=== PATIENT | female | born 1955 | race Caucasian/White ===

== ENCOUNTER 2021-07-08 09:31 | Emergency (ER) | payer MEDICARE, SELFPAY ==
--- NOTE | ~2021-07-08 | XR_ITS ---
EXAMINATION: XR chest 1V portable DATE: 07/08/2021 10:56 INDICATION: Fatigue. Weakness. Shortness of breath. TECHNIQUE: A single frontal view of the chest was obtained on 2 radiographs. COMPARISON: None. FINDINGS: The chest demonstrates clear lungs without pneumonia, pleural effusion, or pneumothorax. Th e heart size is normal. There is a prominent right paracardial fat pad. IMPRESSION: 1. No acute cardiopulmonary disease. Reviewed, dictated and finalized at location A. [employer]
[2021-07-08 09:35] VITALS: BP 149/91; PULSE 73; RESP 18; TEMP 36.9; O2SAT 98
--- NOTE | 2021-07-08 11:57 | ED.GENADULT ---
HPI - General Adult General Chief complaint: Weakness Stated complaint: sob Time Seen by Provider: 07/08/21 10:04 Source: patient Mode of arrival: ambulatory Limitations: no limitations History of Present Illness HPI narrative: Patient is 65-year-old female with chief complaint of fatigue, body aches over the past 24 hours. Patient reports that she has felt very fatigued and had increased sleeping. Patient denies chest pain, wheezing or shortness of breath. Patient reports that she did level a swing going to the bathroom yesterday she felt short of breath. But that resolved and she has not had any shortness of breath since that time. Patient states that she felt more like it was taking a lot of her energy more so than actual shortness of breath. She denies fever, nausea, vomiting, diarrhea, abdominal pain, urinary symptoms. She states she has had her covid vaccination and booster as well as her flu shot. She states she does not have any chronic health issues. Related Data Allergies Allergy/AdvReac Type Severity Reaction Status Date / Time Penicillins Allergy Mild Other Verified 10/08/17 16:52 Review of Systems Review of Systems: CONSTITUTIONAL: Reports fatigue and body aches denies fever, chills, or sweats. EYES: Denies visual changes, redness, or discharge. ENT: Denies rhinorrhea, congestion, sore throat, or otalgia. CARDIOVASCULAR: Denies chest pain, palpitations, or edema. RESPIRATORY: Denies cough or dyspnea. GASTROINTESTINAL: Denies abdominal pain, nausea, vomiting, or diarrhea. GENITOURINARY: Denies dysuria or hematuria. SKIN: Denies rash or itching. MUSCULOSKELETAL: Denies back pain, joint pain, or myalgia. NEUROLOGIC: Denies headache, numbness, dizziness, or weakness. PSYCHIATRIC: Denies anxiety or depression. Exam Narrative: GENERAL: Well-appearing, well-nourished, and in no acute distress. HEAD: Normocephalic, atraumatic. EYES: PERRLA and EOMI. ENT: Nares clear, no rhinorrhea or epistaxis. Mucous membranes moist. Bilateral TMs pearly rowe nonbulging NECK: Supple. ROM intact CHEST: Clear to auscultation. No respiratory distress. No wheezes rales or rhonchi HEART: Regular rate and rhythm. No murmur heard. Normal peripheral pulses. ABDOMEN: Soft, nontender, nondistended. SKIN: Warm, dry, no rash. NEURO: No focal deficits. Alert and oriented x3. PSYCH: Normal mood and affect. Course Vital Signs Vital signs: Vital Signs Temperature 98.5 F 07/08/21 09:35 Pulse Rate 73 07/08/21 09:35 Respiratory Rate 18 07/08/21 09:35 Blood Pressure 149/91 H 07/08/21 09:35 Pulse Oximetry 98 07/08/21 09:35 Temperature 98.5 F 07/08/21 09:35 Pulse Rate 73 07/08/21 09:35 Respiratory Rate 18 07/08/21 09:35 Blood Pressure 149/91 H 07/08/21 09:35 Pulse Oximetry 98 07/08/21 09:35 Medical Decision Making MDM Narrative Medical decision making narrative: Patient not hypoxic. Patient vital signs are stable. Patient states x-ray is negative for signs of pneumonia. Patient's influenza test is negative. Patient has been tested for Covid and the results will take 24 to 72 hours to result. Patient has been instructed on discharge plan, to return to emergency department if she has any worsening or emergent symptoms including but not limited to shortness of breath, chest pain, hypoxia. Differential Diagnosis Differential Diagnosis: Covid, influenza, pneumonia, viral syndrome, UTI, [place] Vital Signs Vital Signs: Vital Signs Temperature 98.5 F 07/08/21 09:35 Pulse Rate 73 07/08/21 09:35 Respiratory Rate 18 07/08/21 09:35 Blood Pressure 149/91 H 07/08/21 09:35 Pulse Oximetry 98 07/08/21 09:35 Temperature 98.5 F 07/08/21 09:35 Pulse Rate 73 07/08/21 09:35 Respiratory Rate 18 07/08/21 09:35 Blood Pressure 149/91 H 07/08/21 09:35 Pulse Oximetry 98 07/08/21 09:35 Lab Data Labs: Lab Results 07/08/21 Range/Units 11:22 SARS-CoV-2 RNA (RT-PCR) Pending Influ
[2021-07-08 19:04] LABS: SARS-CoV-2 RNA PCR Negative
== END 2021-07-08 12:58 | disposition home or self-care (01) ==
PROVIDERS: Physician Assistant; Emergency Provider Emergency Medicine
DX: B34.9 Viral infection, unspecified (principal); Z20.822 Contact with and (suspected) exposure to COVID-19
CPT/HCPCS: 71045; 87804; 99283; C9803; U0003; U0005